=== PATIENT | female | born 1995 | race Caucasian/White ===

== ENCOUNTER 2018-12-31 17:38 | Emergency (ER) | payer OTHER ==
[2018-12-31 17:59] VITALS: TEMP 98.2
[2018-12-31] MEDS ORDERED: SODIUM CHLORIDE 0.9% 500 ML 500 ML IV STA (18:23)
[2018-12-31] MEDS ORDERED: SODIUM CHLORIDE 0.9% 1,000 ML IV STA (18:23)
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
[2018-12-31 19:10] LABS: Amphetamine Screen,Urine Not Detected (NotDetected); Benzodiazepines Screen,Urine Detected (NotDetected); Cocaine Screen,Urine Detected (NotDetected); Opiate Screen,Urine Not Detected (NotDetected); Phencyclidine Screen,Urine Not Detected (NotDetected); Urn Cannabinoid Scrn Detected (NotDetected)
[2018-12-31 19:11] LABS: Barbiturate Screen,Urine Not Detected (NotDetected); Methadone Screen, Urine Not Detected (NotDetected); Oxycodone Screen, Urine Not Detected (NotDetected); Tricyclic Antidepressant,Urine Not Detected (NotDetected)
--- NOTE | 2018-12-31 19:18 | CT ---
EXAMINATION TYPE: CT brain janine cha con DATE OF EXAM: 12/31/2018 COMPARISON: None HISTORY: Left eye ecchymosis. Possible head injury. Neck pain. Headache CT DLP: 1084.4 mGycm Automated exposure control for dose reduction was used. TECHNIQUE: CT scan of the head and cervical spine are performed without contrast. FINDINGS: Ventricles and sulci appear normal. There is no mass effect nor midline shift. There is n o sign of intracranial hemorrhage. The calvarium is intact. Cervical vertebra show some straightening that is probably positional. Posterior elements are intact. Disc spaces are normal. The skull base is intact. There is no evidence of a fracture. Facet joints a ppear normal. Prevertebral soft tissues appear normal. IMPRESSION: Normal CT scan of the brain. Normal CT scan cervical spine.
[2018-12-31 19:19] LABS: Basophils # (A) 0.1 k/uL (0-0.2); Basophils % (A) 1 %; Eosinophils # (A) 0.1 k/uL (0-0.7); Eosinophils % (A) 1 %; HCT 40.9 % (34.0-46.0); HGB 13.9 gm/dL (11.4-16.0); Lymphocytes # (A) 1.9 k/uL (1.0-4.8); Lymphocytes % (A) 23 %; MCH 31.1 pg (25.0-35.0); MCV 91.5 fL (80.0-100.0); Monocytes # (A) 0.6 k/uL (0-1.0); Monocytes % (A) 7 %; Neutrophils # (A) 5.5 k/uL (1.3-7.7); Neutrophils % (A) 66 %; Platelet Count 332 k/uL (150-450); RBC 4.47 m/uL (3.80-5.40); RDW 12.4 % (11.5-15.5); WBC 8.3 k/uL (3.8-10.6)
--- NOTE | 2018-12-31 19:20 | CT ---
EXAMINATION TYPE: CT facial bones wo con DATE OF EXAM: 12/31/2018 COMPARISON: None HISTORY: Left eye ecchymosis. Possible head injury. CT DLP: 1084.4 mGycm Automated exposure control for dose reduction was used. TECHNIQUE: CT scan of the sinuses is performed without contrast, axial images are obtained, coronal r eformatted images are also reviewed. FINDINGS: Orbital margins are intact. There is no evidence of a blowout fracture. There is no evidenc e of retro-orbital mass. There is normal aeration of the paranasal sinuses. Nasal bone appears intact . The maxilla is intact. Mandibular ring appears intact. The temporomandibular joints appear normal. The zygomatic arches appear normal. IMPRESSION: Normal CT scan of the facial bones. No fracture.
[2018-12-31 19:40] LABS: ALT 16 U/L (9-52); AST 28 U/L (14-36); Acetaminophen <10.0 ug/mL; African American GFR (CKD) >90 (>60 ml/min/1.73 sqM); Albumin 4.7 g/dL (3.5-5.0); Alcohol <10 mg/dL; Alkaline Phosphatase 73 U/L (38-126); Anion Gap 10 mmol/L; Blood Urea Nitrogen 13 mg/dL (7-17); Calcium 9.4 mg/dL (8.4-10.2); Carbon Dioxide 25 mmol/L (22-30); Chloride 106 mmol/L (98-107); Glucose 83 mg/dL (74-99); Potassium 4.1 mmol/L (3.5-5.1); Salicylate <1.0 mg/dL; Sodium 141 mmol/L (137-145); Total Protein 8.4 g/dL (6.3-8.2)
--- NOTE | 2018-12-31 20:16 | XR ---
EXAMINATION TYPE: XR chest 2V DATE OF EXAM: 12/31/2018 COMPARISON: NONE HISTORY: Weakness TECHNIQUE: Frontal and lateral views of the chest are obtained. FINDINGS: Heart and mediastinum are normal. Lungs are clear. Diaphragm is normal. Bony thorax appear s normal. IMPRESSION: Normal chest.
[2018-12-31 20:56] VITALS: BP 122/78; PULSE 62; RESP 18
== END 2018-12-31 21:03 | disposition home or self-care (01) ==
LOC: EC 17:38
DX: S06.0X9A Concussion with loss of consciousness of unspecified duration, initial encounter (principal); S05.11XA Contusion of eyeball and orbital tissues, right eye, initial encounter; F19.90 Other psychoactive substance use, unspecified, uncomplicated; R53.1 Weakness; R53.83 Other fatigue; S40.011A Contusion of right shoulder, initial encounter; S80.02XA Contusion of left knee, initial encounter; S40.022A Contusion of left upper arm, initial encounter; S40.021A Contusion of right upper arm, initial encounter; F17.200 Nicotine dependence, unspecified, uncomplicated; F32.9 Major depressive disorder, single episode, unspecified; Z79.899 Other long term (current) drug therapy
CPT/HCPCS: 99285; 36415; 93005; 80053; 85025; 81025; 80306; 83520; 71046; 72125; 70486; 70450; 96360; G0480 ×2; 80320; 80329

== ENCOUNTER 2019-10-04 03:30 | Emergency (ER) | payer OTHER ==
--- NOTE | 2019-10-04 03:43 | ED ---
Psych HPI - General Chief Complaint: Psychiatric Symptoms Stated Complaint: mental health Time Seen by Provider: 10/04/19 03:42 Source: patient, RN notes reviewed, old records reviewed Mode of arrival: ambulatory Limitations: no limitations - History of Present Illness Initial Comments: This is a 23-year-old female DF for evaluation patient to the ER for evaluation patient presents today for evaluation regards to pain intoxicated but severely depressed, patient with suicidal thoughts MD Complaint: suicidal ideation, feels depressed -: unknown Associated Psychiatric Symptoms: depression, suicidal ideation History of same: Yes Quality: constant, getting worse Improves With: medication Context: recent alcohol abuse Associated Symptoms: denies other symptoms Treatments Prior to Arrival: placed on mental health hold If Self Harm: admits thoughts of self harm - Related Data Home Medications Medication Instructions Recorded Confirmed LORazepam [Ativan] 1 mg PO DAILY PRN 12/31/18 12/31/18 buPROPion [Wellbutrin] 100 mg PO BID 12/31/18 12/31/18 Allergies Allergy/AdvReac Type Severity Reaction Status Date / Time No Known Allergies Allergy Verified 10/04/19 03:40 Review of Systems ROS Statement: Those systems with pertinent positive or pertinent negative responses have been documented in the HPI. ROS Other: All systems not noted in ROS Statement are negative. Past Medical History Additional Past Medical History / Comment(s): migraines, recurrent tonsillitis with cryptitis and tonsillar hypertrophy History of Any Multi-Drug Resistant Organisms: None Reported Past Surgical History: No Surgical Hx Reported Past Psychological History: Depression Smoking Status: Current every day smoker, Current some day smoker Past Alcohol Use History: None Reported, Daily Past Drug Use History: Marijuana - Past Family History Father Family Medical History: No Reported History Mother Family Medical History: No Reported History Brother(s) Family Medical History: No Reported History Sister(s) Family Medical History: No Reported History General Exam Limitations: no limitations General appearance: alert, in no apparent distress, anxious Head exam: Present: atraumatic, normocephalic, normal inspection Eye exam: Present: normal appearance, PERRL, EOMI. Absent: scleral icterus, conjunctival injection, periorbital swelling ENT exam: Present: normal exam, mucous membranes moist Neck exam: Present: normal inspection. Absent: tenderness, meningismus, lymp hadenopathy Respiratory exam: Present: normal lung sounds bilaterally. Absent: respiratory distress, wheezes, rales, rhonchi, stridor Cardiovascular Exam: Present: regular rate, normal rhythm, normal heart sounds. Absent: systolic murmur, diastolic murmur, rubs, gallop, clicks GI/Abdominal exam: Present: soft, normal bowel sounds. Absent: distended, tenderness, guarding, rebound, rigid Extremities exam: Present: normal inspection, full ROM, normal capillary refill. Absent: tenderness, pedal edema, joint swelling, calf tenderness Back exam: Present: normal inspection Neurological exam: Present: alert, oriented X3, CN II-XII intact Psychiatric exam: Present: normal affect, normal mood Skin exam: Present: warm, dry, intact, normal color. Absent: rash Course Vital Signs 10/04/19 03:36 Temperature 98.6 F Pulse Rate 108 H Respiratory 18 Rate Blood Pressure 117/61 O2 Sat by Pulse 98 Oximetry - Reevaluation(s) Reevaluation #1: 10/04/19 04:21 Medical records reviewed Reevaluation #2: 10/04/19 06:54 Patient was made medically clear for psychiatric evaluation Medical Decision Making - Medical Decision Making 23 female be transferred for inpatient psychiatric evaluation and treatment - Lab Data Lab Results 10/04/19 10/04/19 Range/Units 03:58 03:58 Urine Color Yellow Urine Appearance Cloudy H (Clear) Urine pH 5.5 (5.0-8.0) Ur Specific [place] 1.027 (1.001-1.035) Urine Protein Trace H (Negative) Urine Glucose (UA) Negative (Negative) Urine Ketones Trace H (Negative) Urine Blood Small H (Negative) Urine Nitrite Negative (Negative) Urine Bilirubin Negative (Negative) Urine Urobilinogen <2.0 (<2.0) mg/dL Ur Leukocyte Esterase Moderate H (Negative) Urine RBC 1 (0-5) /hpf Urine WBC 11 H (0-5) /hpf Ur Squamous Epith Cells 22 H (0-4) /hpf Urine Mucus Moderate H (None) /hpf Urine HCG, Qual Not Detected (Not Detectd) Urine Opiates Screen Not Detected (NotDetected) Ur Oxycodone Screen Not Detected (NotDetected) Urine Methadone Screen Not Detected (NotDetected) Ur Propoxyphene Screen Not Detected (NotDetected) Ur Barbiturates Screen Not Detected (NotDetected) U Tricyclic Antidepress Not Detected (NotDetected) Ur Phencyclidine Scrn Not Detected (NotDetected) Ur Amphetamines Screen Not Detected (NotDetected) U Methamphetamines Scrn Not Detected (NotDetected) U Benzodiazepines Scrn Not Detected (NotDetected) Urine Cocaine Screen Not Detected (NotDetected) U Marijuana (THC) Screen Detected H (NotDetected) Disposition Clinical Impression: Depression, Suicidal ideation Disposition: TRANSFER TO PSYCH HOSP/UNIT Condition: Fair Is patient prescribed a controlled substance at d/c from ED?: No Referrals: None,Stated [Primary Care Provider] - 1-2 days
[2019-10-04 04:29] LABS: Appearance,Urine Cloudy (Clear); Bilirubin,Urine Negative (Negative); Blood,Urine Small (Negative); Color,Urine Yellow; Glucose,Urine (UA) Negative (Negative); Ketones,Urine Trace (Negative); Leukocyte Esterase,Urine Moderate (Negative); Mucus,Urine Moderate /hpf; Nitrite,Urine Negative (Negative); PH, Urine 5.5 (5.0-8.0); Protein,Urine Trace (Negative); RBC,Urine 1 /hpf (0-5); Specific Gravity,Urine 1.027 (1.001-1.035); Squamous Epithelial Cell,Urine 22 /hpf (0-4); Urobilinogen,Urine <2.0 mg/dL (<2.0); WBC,Urine 11 /hpf (0-5)
[2019-10-04 04:39] LABS: Amphetamine Screen,Urine Not Detected (NotDetected); Barbiturate Screen,Urine Not Detected (NotDetected); Benzodiazepines Screen,Urine Not Detected (NotDetected); Cocaine Screen,Urine Not Detected (NotDetected); Methadone Screen, Urine Not Detected (NotDetected); Opiate Screen,Urine Not Detected (NotDetected); Oxycodone Screen, Urine Not Detected (NotDetected); Phencyclidine Screen,Urine Not Detected (NotDetected); Tricyclic Antidepressant,Urine Not Detected (NotDetected); Urn Cannabinoid Scrn Detected (NotDetected)
[2019-10-04 08:31] LABS: Basophils % (A) 0 %; Eosinophils # (A) 0.2 k/uL (0-0.7); Eosinophils % (A) 2 %; HCT 42.4 % (34.0-46.0); HGB 13.9 gm/dL (11.4-16.0); Lymphocytes # (A) 2.5 k/uL (1.0-4.8); Lymphocytes % (A) 27 %; MCH 31.2 pg (25.0-35.0); MCHC 32.9 g/dL (31.0-37.0); MCV 94.9 fL (80.0-100.0); Mean Platelet Volume 7.1; Monocytes # (A) 0.5 k/uL (0-1.0); Monocytes % (A) 6 %; Neutrophils # (A) 5.5 k/uL (1.3-7.7); Neutrophils % (A) 62 %; Platelet Count 344 k/uL (150-450); RBC 4.47 m/uL (3.80-5.40); RDW 12.2 % (11.5-15.5)
[2019-10-04 08:45] LABS: ALT 10 U/L (4-34); AST 21 U/L (14-36); African American GFR (CKD) >90 (>60 ml/min/1.73 sqM); Albumin 4.6 g/dL (3.5-5.0); Alkaline Phosphatase 82 U/L (38-126); Anion Gap 9 mmol/L; Blood Urea Nitrogen 12 mg/dL (7-17); Calcium 9.3 mg/dL (8.4-10.2); Carbon Dioxide 24 mmol/L (22-30); Chloride 109 mmol/L (98-107); Glucose 85 mg/dL (74-99); Non-African American GFR(CKD) >90 (>60 ml/min/1.73 sqM); Potassium 4.5 mmol/L (3.5-5.1); Sodium 142 mmol/L (137-145); Total Bilirubin 0.5 mg/dL (0.2-1.3); Total Protein 8.1 g/dL (6.3-8.2)
[2019-10-04 11:28] VITALS: RESP 16
[2019-10-04 11:37] VITALS: TEMP 98.2
[2019-10-04 14:12] VITALS: BP 120/77; PULSE 79
== END 2019-10-04 14:45 ==
LOC: EC 03:30
DX: F32.9 Major depressive disorder, single episode, unspecified (principal); R45.851 Suicidal ideations; R52 Pain, unspecified; F17.200 Nicotine dependence, unspecified, uncomplicated; Z79.899 Other long term (current) drug therapy
CPT/HCPCS: 36415; 80053; 80306; 81001; 81025; 82075; 85025; 87086; 99285

== ENCOUNTER → 2021-09-23 | Outpatient (CLI) | payer OTHER ==
[~2021-09-23] MED LIST: METHOTREXATE SODIUM (PF) 25 MG/ML 2 ML VIAL IM ONE
[2021-09-23 14:20] VITALS: BP 114/74; PULSE 68; RESP 16; TEMP 98.4
== END ==
LOC: PROCWHC3 09:38
PROVIDERS: ATTEND Obstetrics & Gynecology
DX: O00.90 Unspecified ectopic pregnancy without intrauterine pregnancy (principal); Z3A.00 Weeks of gestation of pregnancy not specified
CPT/HCPCS: 86900; 86901; 84450; 84460; 84702; 96402; J9260; 86850

== ENCOUNTER 2021-09-25 21:30 | Emergency (ER) | payer OTHER ==
[2021-09-25 21:44] VITALS: BP 140/99; PULSE 90; RESP 20; TEMP 98.2
[2021-09-25 22:32] LABS: Appearance,Urine Clear (Clear); Bacteria,Urine Rare /hpf; Bilirubin,Urine Negative (Negative); Blood,Urine Large (Negative); Color,Urine Yellow; Glucose,Urine (UA) Negative (Negative); Ketones,Urine Negative (Negative); Leukocyte Esterase,Urine Negative (Negative); Mucus,Urine Rare /hpf; Nitrite,Urine Negative (Negative); PH, Urine 5.5 (5.0-8.0); Protein,Urine Negative (Negative); RBC,Urine 31 /hpf (0-5); Urobilinogen,Urine <2.0 mg/dL (<2.0); WBC,Urine 1 /hpf (0-5)
--- NOTE | 2021-09-25 22:57 | ED ---
Abdominal Pain HPI - General Chief Complaint: Abdominal Pain Stated Complaint: Abd pain Time Seen by Provider: 09/25/21 21:52 Source: patient, family, RN notes reviewed Mode of arrival: ambulatory Limitations: no limitations - History of Present Illness Initial Comments: Patient is a pleasant 25-year-old female presents to the emergency room with complaints of severe abdominal pain. She was found to have an ectopic recently and was started on methotrexate 2 days ago. She reports that while giving a urine sample in the triage reason she noticed that she passed a large blood clot and after passing the blood clot her abdominal pain has seemed to lessen to a as expected menstrual cycle-like cramping sensation. She denies any severe sharp abdominal pain at this time, nausea, vomiting, headaches, dizziness fevers or chills. She had serum beta levels drawn on 09/23/2021 with values of [id number]. She has a past medical history significant for migraines but denies any other significant past medical history. She denies any other compla ints or concerns at this time. - Related Data Home Medications Medication Instructions Recorded Confirmed No Known Home Medications 10/04/19 10/04/19 Allergies Allergy/AdvReac Type Severity Reaction Status Date / Time No Known Allergies Allergy Verified 09/25/21 21:43 Review of Systems ROS Statement: Those systems with pertinent positive or pertinent negative responses have been documented in the HPI. ROS Other: All systems not noted in ROS Statement are negative. Past Medical History Additional Past Medical History / Comment(s): migraines, recurrent tonsillitis with cryptitis and tonsillar hypertrophy History of Any Multi-Drug Resistant Organisms: None Reported Past Surgical History: No Surgical Hx Reported Past Anesthesia/Blood Transfusion Reactions: No Reported Reaction Past Psychological History: No Psychological Hx Reported, Depression Smoking Status: Vaper Past Alcohol Use History: None Reported, Daily Past Drug Use History: None Reported, Marijuana - Past Family History Father Family Medical History: No Reported History Mother Family Medical History: No Reported History Brother(s) Family Medical History: No Reported History Sister(s) Family Medical History: No Reported History General Exam Limitations: no limitations General appearance: alert, in no apparent distress Head exam: Present: atraumatic, normocephalic, normal inspection Eye exam: Present: normal appearance, PERRL, EOMI. Absent: scleral icterus, conjunctival injection, periorbital swelling ENT exam: Present: normal exam, mucous membranes moist Neck exam: Present: normal inspection Respiratory exam: Present: normal lung sounds bilaterally. Absent: respiratory distress, wheezes, rales, rhonchi, stridor Cardiovascular Exam: Present: regular rate, normal rhythm, normal heart sounds. Absent: systolic murmur, diastolic murmur, rubs, gallop, clicks GI/Abdominal exam: Present: soft, normal bowel sounds. Absent: distended, tenderness, guarding, rebound, rigid Extremities exam: Present: normal inspection, full ROM, normal capillary refill. Absent: tenderness, pedal edema, joint swelling, calf tenderness Back exam: Present: normal inspection Neurological exam: Present: alert, oriented X3, CN II-XII intact Psychiatric exam: Present: normal affect, normal mood Skin exam: Present: warm, dry, intact, normal color. Absent: rash Course Vital Signs 09/25/21 21:40 Temperature 98.2 F Pulse Rate 90 Respiratory 20 Rate Blood Pressure 140/99 O2 Sat by Pulse 99 Oximetry Medical Decision Making - Medical Decision Making Known ectopic high risk for tubal rupture. Will check CBC, quantitative beta serum levels along with OB ultrasound. She currently reports that pain is stable and denies any analgesic needs. Slight leukocytosis without evidence of antibiotic need. Hemoglobin stable. Ultrasound revealed presence of ectopic without rupture. Will discharge home with close follow-up with her EVP. - Lab Data Result diagrams: 09/25/21 23:11 Lab Results 09/25/21 09/25/21 09/25/21 Range/Units 21:57 23:11 23:11 WBC 10.7 H (3.8-10.6) k/uL RBC 4.32 (3.80-5.40) m/uL Hgb 12.5 (11.4-16.0) gm/dL Hct 40.5 (34.0-46.0) % MCV 93.5 (80.0-100.0) fL MCH 28.9 (25.0-35.0) pg MCHC 30.9 L (31.0-37.0) g/dL RDW 12.5 (11.5-15.5) % Plt Count 400 (150-450) k/uL MPV 7.4 Neutrophils % 74 % Lymphocytes % 18 % Monocytes % 4 % Eosinophils % 2 % Basophils % 0 % Neutrophils # 7.9 H (1.3-7.7) k/uL Lymphocytes # 2.0 (1.0-4.8) k/uL Monocytes # 0.4 (0-1.0) k/uL Eosinophils # 0.2 (0-0.7) k/uL Basophils # 0.0 (0-0.2) k/uL HCG, Quant 3995.8 mIU/mL Urine Color Yellow Urine Appearance Clear (Clear) Urine pH 5.5 (5.0-8.0) Ur Specific [place] 1.010 (1.001-1.035) Urine Protein Negative (Negative) Urine Glucose (UA) Negative (Negative) Urine Ketones Negative (Negative) Urine Blood Large H (Negative) Urine Nitrite Negative (Negative) Urine Bilirubin Negative (Negative) Urine Urobilinogen <2.0 (<2.0) mg/dL Ur Leukocyte Esterase Negative (Negative) Urine RBC 31 H (0-5) /hpf Urine WBC 1 (0-5) /hpf Urine Bacteria Rare H (None) /hpf Urine Mucus Rare H (None) /hpf Disposition Clinical Impression: Ectopic Disposition: HOME SELF-CARE Condition: Stable Instructions (If sedation given, give patient instructions): Ectopic (DC) Additional Instructions: Please continue follow-up with your work EVP in regards to treatment for your topic . Drink plenty of fluids. Utilize Tylenol as needed for pain. Pl ease return to the Emergency Department if symptoms worsen or any other concerns. Is patient prescribed a controlled substance at d/c from ED?: No Referrals: Karis Franco PAC [Primary Care Provider] - 1-2 days
[2021-09-25 23:40] LABS: Basophils % (A) 0 %; Eosinophils # (A) 0.2 k/uL (0-0.7); Eosinophils % (A) 2 %; HCT 40.5 % (34.0-46.0); HGB 12.5 gm/dL (11.4-16.0); Lymphocytes % (A) 18 %; MCH 28.9 pg (25.0-35.0); MCHC 30.9 g/dL (31.0-37.0); MCV 93.5 fL (80.0-100.0); Mean Platelet Volume 7.4; Monocytes # (A) 0.4 k/uL (0-1.0); Monocytes % (A) 4 %; Neutrophils # (A) 7.9 k/uL (1.3-7.7); Neutrophils % (A) 74 %; Platelet Count 400 k/uL (150-450); RBC 4.32 m/uL (3.80-5.40); RDW 12.5 % (11.5-15.5); WBC 10.7 k/uL (3.8-10.6)
--- NOTE | 2021-09-26 00:58 | US ---
EXAMINATION TYPE: Transabdominal DATE OF EXAM: 09/25/2021 10:18 PM COMPARISON: NONE CLINICAL HISTORY: pain ectopic . known rt tubal ectopic, started methotrexate 2 days ago, pe lvic pain today EXAM PERFORMED: OBTA EXAM MEASUREMENTS: GESTATIONAL AGE / DATING Physician Established: N/A Dates by LMP: (9 weeks/6 days) EDC: 04/24/2022 Dates by First Scan: No previous this is first scan Dates by Current Scan for: No IUP seen at this time MATERNAL ANATOMY Uterus: 7.7 x 4.6 x 3.6cm Right Ovary: 3.4 x 2.0 x 2.4cm Left Ovary: 2.0 x 1.5 x 1.8cm Post CDS / Adnexa: heterogeneous right fallopian tube with known ectopic had increased vascularity Presence of free fluid: NO Presence of corpus luteal cyst: not seen Presence of subchorionic bleed: n Date of LMP: 07/18/2021 Beta HcG (if available): not drawn patient states she voided prior to US and passed large clots and pain instantly stopped. IMPRESSION: There is enlarged right fallopian tube with increased vascularity consistent with known ectopic tubal . This area measures 1.7 cm in diameter. No previous exam available for comparison. The uterus appears empty with endometrium measuring 10 mm. Uterus measures 7.7 x 3.6 cm. Cul-de-sac i s clear fluid.
[2021-09-26] MEDS ORDERED: ACET/COD 300 MG/30 MG STARTER PACK 6 TAB BTL PO STA (01:17)
== END 2021-09-26 02:22 | disposition home or self-care (01) ==
LOC: EC 21:30
DX: O00.90 Unspecified ectopic pregnancy without intrauterine pregnancy (principal); O99.511 Diseases of the respiratory system complicating pregnancy, first trimester; F17.290 Nicotine dependence, other tobacco product, uncomplicated; Z3A.09 9 weeks gestation of pregnancy
CPT/HCPCS: 36415; 76801; 81001; 84702; 85025; 99284

== ENCOUNTER 2021-10-01 16:00 | Observation (INO) | payer OTHER ==
[2021-10-01] MEDS ORDERED: SODIUM CHLORIDE 0.9% 1,000 ML IV STA (17:31)
[2021-10-01] MEDS ORDERED: SODIUM CHLORIDE 0.9% 2,000 ML IV STA (17:39)
[2021-10-01] MEDS ORDERED: HYDROmorphone 0.5 MG/0.5 ML SYRINGE IVP STA (17:39)
[2021-10-01 18:19] LABS: Basophils % (A) 1 %; Eosinophils # (A) 0.2 k/uL (0-0.7); Eosinophils % (A) 3 %; HCT 39.6 % (34.0-46.0); HGB 12.6 gm/dL (11.4-16.0); Lymphocytes # (A) 2.3 k/uL (1.0-4.8); Lymphocytes % (A) 27 %; MCHC 31.9 g/dL (31.0-37.0); MCV 94.2 fL (80.0-100.0); Mean Platelet Volume 7.5; Monocytes # (A) 0.5 k/uL (0-1.0); Monocytes % (A) 5 %; Neutrophils # (A) 5.3 k/uL (1.3-7.7); Neutrophils % (A) 63 %; Platelet Count 399 k/uL (150-450); RBC 4.21 m/uL (3.80-5.40); RDW 12.8 % (11.5-15.5); WBC 8.4 k/uL (3.8-10.6)
[2021-10-01 18:25] LABS: ALT 16 U/L (4-34); AST 21 U/L (14-36); African American GFR (CKD) >90 (>60 ml/min/1.73 sqM); Albumin 4.7 g/dL (3.5-5.0); Alkaline Phosphatase 86 U/L (38-126); Anion Gap 10 mmol/L; Blood Urea Nitrogen 11 mg/dL (7-17); Calcium 9.5 mg/dL (8.4-10.2); Carbon Dioxide 22 mmol/L (22-30); Chloride 106 mmol/L (98-107); Glucose 84 mg/dL (74-99); Lipase 81 U/L (23-300); Non-African American GFR(CKD) >90 (>60 ml/min/1.73 sqM); Potassium 4.2 mmol/L (3.5-5.1); Sodium 138 mmol/L (137-145); Total Bilirubin 0.4 mg/dL (0.2-1.3); Total Protein 8.3 g/dL (6.3-8.2)
[2021-10-01] MEDS ORDERED: Rhogam IMMUNE GLOBULIN 1,500 UNIT/1 ML IM ONE (18:33)
[2021-10-01 18:41] LABS: HCG,Quantitative Serum 1379.5 mIU/mL
[2021-10-01 18:44] LABS: INR 1.1 (<1.2); Partial Thromboplastin Time 25.9 sec (22.0-30.0); Prothrombin Time 11.5 sec (9.0-12.0)
[2021-10-01] MEDS ORDERED: MORPHINE SULFATE 4 MG/ML SYRINGE IV PRN (18:46)
[2021-10-01] MEDS ORDERED: NALOXONE 0.4 MG/ML 1 ML VIAL IV PRN (18:46)
[2021-10-01 18:57] LABS: Appearance,Urine Cloudy (Clear); Bacteria,Urine Rare /hpf; Bilirubin,Urine Negative (Negative); Blood,Urine Large (Negative); Color,Urine Light Yellow; Glucose,Urine (UA) Negative (Negative); Ketones,Urine Negative (Negative); Leukocyte Esterase,Urine Small (Negative); Mucus,Urine Rare /hpf; Nitrite,Urine Negative (Negative); Protein,Urine Negative (Negative); RBC,Urine 1 /hpf (0-5); Specific Gravity,Urine 1.008 (1.001-1.035); Squamous Epithelial Cell,Urine 4 /hpf (0-4); Urobilinogen,Urine <2.0 mg/dL (<2.0); WBC,Urine 4 /hpf (0-5)
[2021-10-01] MEDS ORDERED: SODIUM CHLORIDE 0.9% 1,000 ML IV SCH (19:00)
--- NOTE | 2021-10-01 19:07 | ED ---
Abdominal Pain HPI - General Chief Complaint: Abdominal Pain Stated Complaint: etopic Time Seen by Provider: 10/01/21 17:24 Source: patient Mode of arrival: ambulatory Limitations: no limitations - History of Present Illness Initial Comments: Patient is a 25-year-old A0 female who was recently diagnosed with ectopic presents with a chief complaint of abdominal pain. This is patient's first and she was diagnosed by her OB Dr. Moreno at around 9 weeks. Patient states she received methotrexate on 09/22. Patient presented in our emergency department due to increased pain on 09/25. At this time ultrasound showed a right fallopian tube ectopic without the presence of free fluid. Hemoglobin was stable. Patient was discharged with Tylenol 3. She states he Tylenol 3's are not helping her pain at home. Patient endorses pain in the right pelvic region, 8/10 in severity. There is radiation to the lef t pelvic region. Reports nausea without vomiting. She denies fever, chills, shortness of breath, dizziness, lightheadedness, chest pain, and other concerns. Reports vaginal bleeding, using approximately 2 pads a day States she received rhogam last week. - Related Data Home Medications Medication Instructions Recorded Confirmed No Known Home Medications 10/04/19 10/04/19 Allergies Allergy/AdvReac Type Severity Reaction Status Date / Time No Known Allergies Allergy Verified 10/01/21 16:06 Review of Systems ROS Statement: Those systems with pertinent positive or pertinent negative responses have been documented in the HPI. ROS Other: All systems not noted in ROS Statement are negative. Past Medical History Additional Past Medical History / Comment(s): migraines, recurrent tonsillitis with cryptitis and tonsillar hypertrophy History of Any Multi-Drug Resistant Organisms: None Reported Past Surgical History: No Surgical Hx Reported Past Anesthesia/Blood Transfusion Reactions: No Reported Reaction Past Psychological History: No Psychological Hx Reported, Depression Smoking Status: Vaper Past Alcohol Use History: None Reported, Daily Past Drug Use History: None Reported, Marijuana - Past Family History Father Family Medical History: No Reported History Mother Family Medical History: No Reported History Brother(s) Family Medical History: No Reported History Sister(s) Family Medical History: No Reported History General Exam Limitations: no limitations General appearance: alert, in no apparent distress Head exam: Present: atraumatic, normocephalic, normal inspection Eye exam: Present: normal appearance, PERRL, EOMI. Absent: scleral icterus, conjunctival injection, periorbital swelling Respiratory exam: Present: normal lung sounds bilaterally. Absent: respiratory distress, wheezes, rales, rhonchi, stridor Cardiovascular Exam: Present: regular rate, normal rhythm, normal heart sounds. Absent: systolic murmur, diastolic murmur, rubs, gallop, clicks GI/Abdominal exam: Present: soft, tenderness (right pelvic and to a lesser extent, left pelvic), normal bowel sounds. Absent: distended, guarding, rebound, rigid Neurological exam: Present: alert, oriented X3, CN II-XII intact Psychiatric exam: Present: normal affect, normal mood Skin exam: Present: warm, dry, intact, normal color. Absent: rash Course Vital Signs 10/01/21 10/01/21 16:02 18:34 Temperature 98.1 F Pulse Rate 72 74 Respiratory 20 16 Rate Blood Pressure 110/67 110/76 O2 Sat by Pulse 97 99 Oximetry Medical Decision Making - Medical Decision Making This is a 25-year-old female recently diagnosed with ectopic presenting with right pelvic pain. Thorough history and examination were performed. Patient is well-appearing. She is hemodynamically stable. Afebrile. There is moderate tenderness with palpation of the right pelvic region and to a lesser extent the left pelvic region. Pain and nausea controlled with Dilaudid and Zofran. Patient has normal hemoglobin at 12.6. Transabdominal ultrasound shows no IUP and heterogeneous right fallopian tube with portion of the tube but now appears fluid filled. There is presence of free fluid. Case discussed with OB Dr. Sandhu, covering for Dr. Moreno. He recommends patient be admitted for observation. Results discussed with patient who is agreeable to admission. She is NPO. Admitted in stable condition. Dr. James is my attending. - Lab Data Result diagrams: 10/01/21 18:07 10/01/21 18:07 Lab Results 10/01/21 10/01/21 10/01/21 Range/Units 18:07 18:07 18:07 WBC 8.4 (3.8-10.6) k/uL RBC 4.21 (3.80-5.40) m/uL Hgb 12.6 (11.4-16.0) gm/dL Hct 39.6 (34.0-46.0) % MCV 94.2 (80.0-100.0) fL MCH 30.0 (25.0-35.0) pg MCHC 31.9 (31.0-37.0) g/dL RDW 12.8 (11.5-15.5) % Plt Count 399 (150-450) k/uL MPV 7.5 Neutrophils % 63 % Lymphocytes % 27 % Monocytes % 5 % Eosinophils % 3 % Basophils % 1 % Neutrophils # 5.3 (1.3-7.7) k/uL Lymphocytes # 2.3 (1.0-4.8) k/uL Monocytes # 0.5 (0-1.0) k/uL Eosinophils # 0.2 (0-0.7) k/uL Basophils # 0.0 (0-0.2) k/uL PT 11.5 (9.0-12.0) sec INR 1.1 (<1.2) APTT 25.9 (22.0-30.0) sec Sodium 138 (137-145) mmol/L Potassium 4.2 (3.5-5.1) mmol/L Chloride 106 (98-107) mmol/L Carbon Dioxide 22 (22-30) mmol/L Anion Gap 10 mmol/L BUN 11 (7-17) mg/dL Creatinine 0.59 (0.52-1.04) mg/dL Est GFR (CKD-EPI)AfAm >90 (>60 ml/min/1.73 sqM) Est GFR (CKD-EPI)NonAf >90 (>60 ml/min/1.73 sqM) Glucose 84 (74-99) mg/dL Calcium 9.5 (8.4-10.2) mg/dL Total Bilirubin 0.4 (0.2-1.3) mg/dL AST 21 (14-36) U/L ALT 16 (4-34) U/L Alkaline Phosphatase 86 (38-126) U/L Total Protein 8.3 H (6.3-8.2) g/dL Albumin 4.7 (3.5-5.0) g/dL Lipase 81 (23-300) U/L HCG, Quant 1379.5 mIU/mL Urine Color Urine Appearance (Clear) Urine pH (5.0-8.0) Ur Specific [place] (1.001-1.035) Urine Protein (Negative) Urine Glucose (UA) (Negative) Urine Ketones (Negative) Urine Blood (Negative) Urine Nitrite (Negative) Urine Bilirubin (Negative) Urine Urobilinogen (<2.0) mg/dL Ur Leukocyte Esterase (Negative) Urine RBC (0-5) /hpf Urine WBC (0-5) /hpf Ur Squamous Epith Cells (0-4) /hpf Urine Bacteria (None) /hpf Urine Mucus (None) /hpf 10/01/21 Range/Units 18:35 WBC (3.8-10.6) k/uL RBC (3.80-5.40) m/uL Hgb (11.4-16.0) gm/dL Hct (34.0-46.0) % MCV (80.0-100.0) fL MCH (25.0-35.0) pg MCHC (31.0-37.0) g/dL RDW (11.5-15.5) % Plt Count (150-450) k/uL MPV Neutrophils % % Lymphocytes % % Monocytes % % Eosinophils % % Basophils % % Neutrophils # (1.3-7.7) k/uL Lymphocytes # (1.0-4.8) k/uL Monocytes # (0-1.0) k/uL Eosinophils # (0-0.7) k/uL Basophils # (0-0.2) k/uL PT (9.0-12.0) sec INR (<1.2) APTT (22.0-30.0) sec Sodium (137-145) mmol/L Potassium (3.5-5.1) mmol/L Chloride (98-107) mmol/L Carbon Dioxide (22-30) mmol/L Anion Gap mmol/L BUN (7-17) mg/dL Creatinine (0.52-1.04) mg/dL Est GFR (CKD-EPI)AfAm (>60 ml/min/1.73 sqM) Est GFR (CKD-EPI)NonAf (>60 ml/min/1.73 sqM) Glucose (74-99) mg/dL Calcium (8.4-10.2) mg/dL Total Bilirubin (0.2-1.3) mg/dL AST (14-36) U/L ALT (4-34) U/L Alkaline Phosphatase (38-126) U/L Total Protein (6.3-8.2) g/dL Albumin (3.5-5.0) g/dL Lipase (23-300) U/L HCG, Quant mIU/mL Urine Color Light Yellow Urine Appearance Cloudy H (Clear) Urine pH 7.0 (5.0-8.0) Ur Specific [place] 1.008 (1.001-1.035) Urine Protein Negative (Negative) Urine Glucose (UA) Negative (Negative) Urine Ketones Negative (Negative) Urine Blood Large H (Negative) Urine Nitrite Negative (Negative) Urine Bilirubin Negative (Negative) Urine Urobilinogen <2.0 (<2.0) mg/dL Ur Leukocyte Esterase Small H (Negative) Urine RBC 1 (0-5) /hpf Urine WBC 4 (0-5) /hpf Ur Squamous Epith Cells 4 (0-4) /hpf Urine Bacteria Rare H (None) /hpf Urine Mucus Rare H (None) /hpf Disposition Clinical Impression: Ectopic , Abdominal pain Disposition: ADMITTED IP TO THIS [facility] Condition: Fair Time of Disposition: 20:14
[2021-10-01] MEDS: ONDANSETRON 4 MG/2 ML VIAL IVP PRN (19:13)
--- NOTE | 2021-10-01 19:16 | US ---
EXAMINATION TYPE: Transabdominal DATE OF EXAM: 10/01/2021 6:32 PM COMPARISON: 09/25/2021 CLINICAL HISTORY: right fallopian tube ectopic, increased pain. Known right fallopian tube ectopic, s tarted methotrexate 1 week ago, patient states she is having increased right pelvic pain EXAM PERFORMED: Transabdominal (TA) EXAM MEASUREMENTS: GESTATIONAL AGE / DATING Physician Established: Not yet established Dates by LMP: (10 weeks/5 days) EDC: 04/24/2022 Dates by First Scan: No IUP seen Dates by Current Scan for: No IUP seen MATERNAL ANATOMY Uterus: 7.1 x 3.2 x 5.0cm, endometrium 0.6cm Right Ovary: 3.1 x 1.7 x 2.7cm Left Ovary: 2.5 x 1.3 x 1.5cm Post CDS / Adnexa: heterogeneous right fallopian tube with known ectopic, portion of tube now appears fluid filled Presence of free fluid: yes Presence of corpus luteal cyst: not seen Presence of subchorionic bleed: no GESTATION / SURVEY IUP: No IUP seen at this time Date of LMP: 07/18/2021 Beta HcG (if available): 1,379.5 IMPRESSION: There is right-sided hydrosalpinx with more well-defined fluid compared to previous exam. Empty uteru s. Normal ovaries. There is tiny amount of free fluid in the cul-de-sac which appears new compared to old exam. No gestational sac seen.
--- NOTE | 2021-10-01 20:57 | P.HPOB ---
History of Present Illness H&P Date: 10/01/21 Chief Complaint: Pelvic/abdominal pain and known ectopic This patient is a pleasant 25-year-old 1 para 0 female who was seen on September [address] Moreno in the office and diagnosed with a 7 week right ectopic . She was quite large. Patient was not having any significant pain and therefore was offered trial of methotrexate versus surgical intervention. Patient chose methotrexate at this time because she apparently has been trying for a period of time to get . Patient's beta-hCG at that time was 5887. She subsequently about 3 days later went to the emergency department with again severe lower abdominal pain and at that time had a beta hCG of 3995. She had passed a clot and felt that the pain had improved and therefore was sent home on oral pain medications. Patient's hemoglobin on September 25 was 12.5. Patient called the office earlier this afternoon stating that her pain was continuing and getting worse and therefore re-presented to the emergency department. Patient's repeat beta hCG has decreased to 1379 and ultrasound basically is similar to previous findings. There is a trace amount of free fluid and hemoglobin stable at 12.6. Patient has been taking Tylenol 3 apparently this week for pain. The emergency department did call me and I discussed the case with them I felt since this was her second visit to the emergency department as best to admit for observation and possible surgical intervention tomorrow. Review of Systems Genitourinary: Reports as per HPI Menstruation: Reports as per HPI Past Medical History Additional Past Medical History / Comment(s): migraines, recurrent tonsillitis with cryptitis and tonsillar hypertrophy History of Any Multi-Drug Resistant Organisms: None Reported Past Surgical History: No Surgical Hx Reported Past Anesthesia/Blood Transfusion Reactions: No Reported Reaction Past Psychological History: No Psychological Hx Reported, Depression Smoking Status: Vaper Past Alcohol Use History: None Reported, Daily Past Drug Use History: None Reported, Marijuana - Past Family History Father Family Medical History: No Reported History Mother Family Medical History: No Reported History Brother(s) Family Medical History: No Reported History Sister(s) Family Medical History: No Reported History Medications and Allergies Home Medications Medication Instructions Recorded Confirmed Type No Known Home Medications 10/04/19 10/04/19 History Allergies Allergy/AdvReac Type Severity Reaction Status Date / Time No Known Allergies Allergy Verified 10/01/21 16:06 Exam Vital Signs Temp Pulse Pulse Resp BP BP Pulse Ox 10/01/21 20:33 98.3 F 64 16 104/71 100 10/01/21 18:34 74 16 110/76 99 10/01/21 16:02 98.1 F 72 20 110/67 97 Intake and Output 10/01/21 10/01/21 10/01/21 06:59 14:59 22:59 Other: Weight 65.317 kg - OBG Physical Exam Abdomen: bowel sounds normal (Patient has some tenderness in the right lower quadrant to palpation. There is no rebound at this time.), no diffuse tenderness, no bruit present, no guarding noted, no hepatomegaly, no splenomegaly, no mass Results Result Diagrams: 10/01/21 18:07 10/01/21 18:07 Abnormal Lab Results - Last 24 Hours (Table) 10/01/21 10/01/21 Range/Units 18:07 18:35 Total Protein 8.3 H (6.3-8.2) g/dL Urine Appearance Cloudy H (Clear) Urine Blood Large H (Negative) Ur Leukocyte Esterase Small H (Negative) Urine Bacteria Rare H (None) /hpf Urine Mucus Rare H (None) /hpf Assessment and Plan Assessment: This is a pleasant 25-year-old 1 para 0 female with known 7 week size right ectopic with persistent pain. Patient is stable at this time however since this is her second admission to the emergency department in the last 7 days I recommended admission for observation, serial blood counts, and possible surgical intervention. Although the patient's beta hCG has fallen her pain does appear to be getting worse. Plan is admission for IV fluids, pain management, and Dr. Moreno we'll see this patient morning to discuss the next step in management. Patient did have RhoGAM already in our office and therefore is not indicated. (1) Rh negative status during Current Visit: Yes Status: Acute Code(s): O26.899 - OTH RELATED CONDITIONS, UNSPECIFIED TRIMESTER; Z67.91 - UNSPECIFIED BLOOD TYPE, RH NEGATIVE SNOMED Code(s): 985210255 (2) Abdominal pain Current Visit: Yes Status: Acute Code(s): R10.9 - UNSPECIFIED ABDOMINAL PAIN SNOMED Code(s): 59130942 (3) Ectopic Current Visit: Yes Status: Acute Code(s): O00.90 - UNSPECIFIED ECTOPIC WITHOUT INTRAUTERINE SNOMED Code(s): 27901441
[2021-10-01] MEDS: HYDROmorphone 0.5 MG/0.5 ML SYRINGE IVP PRN (22:14)
[2021-10-01] MEDS: LACTATED RINGERS 1,000 ML IV SCH (22:16)
[2021-10-02] MEDS: LACTATED RINGERS 1,000 ML IV SCH ×2 (06:24→13:58)
--- NOTE | 2021-10-02 07:15 | P.PN ---
Progress Note - Text Progress Note Date: 10/02/21 Patient continues to have pain with this ectopic . She is nervous to go home and have it rupture. I think it's reasonable to take her to the operating room and this point for laparoscopic salpingectomy removal of ectopic possible oophorectomy and possible laparotomy. I expressed all the risks and benefits and alternatives with the patient and her boyfriend. Patient expressed complete understanding and would like to go ahead with the surgery.
[2021-10-02] MEDS: HYDROmorphone 0.5 MG/0.5 ML SYRINGE IVP PRN ×2 (07:26→11:09)
[2021-10-02 08:12] LABS: Basophils % (A) 0 %; Eosinophils # (A) 0.2 k/uL (0-0.7); Eosinophils % (A) 3 %; HCT 37.7 % (34.0-46.0); HGB 12.2 gm/dL (11.4-16.0); Lymphocytes # (A) 2.3 k/uL (1.0-4.8); Lymphocytes % (A) 38 %; MCH 31.3 pg (25.0-35.0); MCHC 32.4 g/dL (31.0-37.0); MCV 96.7 fL (80.0-100.0); Mean Platelet Volume 7.5; Monocytes # (A) 0.4 k/uL (0-1.0); Monocytes % (A) 6 %; Neutrophils % (A) 50 %; Platelet Count 357 k/uL (150-450); RDW 13.1 % (11.5-15.5)
[2021-10-02] MEDS: ONDANSETRON 4 MG/2 ML VIAL IVP PRN (08:34)
[2021-10-02] MEDS ORDERED: IV FLUID CONTINUATION 1,000 ML IV ONE (11:55)
[2021-10-02] MEDS ORDERED: LIDOCAINE 2% INJ 20 MG/ML (2 ML VIAL) ONE (12:02)
[2021-10-02] MEDS ORDERED: SUCCINYLCHOLINE CHLORIDE 100 MG/5 ML SYR IV ONE (12:02)
[2021-10-02] MEDS ORDERED: fentaNYL (PF) 50 MCG/ML 2 ML AMP ONE (12:02)
[2021-10-02] MEDS ORDERED: GLYCOPYRROLATE 0.2 MG/ML 2 ML VIAL ONE (12:02)
[2021-10-02] MEDS ORDERED: NEOSTIGMINE 1 MG/ML 10 ML VIAL ONE (12:02)
[2021-10-02] MEDS ORDERED: HYDROmorphone (PF) 1 MG/ML ONE (12:02)
[2021-10-02] MEDS ORDERED: KETOROLAC 15 MG/ML 1 ML VIAL ONE (12:02)
[2021-10-02] MEDS ORDERED: MIDAZOLAM 2 MG/2 ML VIAL ONE (12:02)
[2021-10-02] MEDS ORDERED: PROPOFOL 10 MG/ML 20 ML VIAL IV ONE (12:02)
[2021-10-02] MEDS ORDERED: ROCURONIUM 10 MG/ML (5 ML VIAL) IV ONE (12:02)
[2021-10-02] MEDS ORDERED: BUPIVACAINE (PF) 0.25% 30 ML VIAL SQ ONE ×2 (12:05→12:50)
[2021-10-02] MEDS ORDERED: LACTATED RINGERS 1,000 ML IV ONE (12:30)
--- NOTE | 2021-10-02 13:08 | P.OP ---
Date of Procedure: 10/02/21 Preoperative Diagnosis: 1. Ectopic right adnexa Postoperative Diagnosis: 1. ectopic in right fallopian tube Procedure(s) Performed: Laparoscopic right salpingectomy with removal of ectopic Anesthesia: JOHNATHON Surgeon: Lianet Moreno Estimated Blood Loss (ml): 25 IV fluids (ml): 700 Urine output (ml): 150 Pathology: other (Right fallopian tube with ectopic) Condition: stable Disposition: PACU Operative Findings: Swollen right fallopian tube with ectopic and its. Normal-appearing left fallopian tube. Some left pelvic sidewall adhesions to the bowel Description of Procedure: Patient taken the operating room where general anesthesia was obtained without difficulty. She is prepped draped in normal sterile fashion dorsal lithotomy position, legs placed in the Shlomo stirrups. Bladder was drained of all urine. Clearlake speculum place in vagina and the anterior lip the cervix grasped with single-tooth tenaculum. The uterus sounded to 8 cm. The kroner manipulator was then placed. Attention was then turned to the abdomen and gloves were changed. A 5 mm infraumbilical incision was made the scalpel 5 mm optical trocar was placed under direct visualization. A 10 mm suprapubic incision was made with scalpel 10 mm optical trocar placed under direct visualization. A third trocar, 5 mm, was placed in the right lower quadrant. Survey of the pelvis revealed some blood in the posterior cul-de-sac where the fallopian tube was leaking some blood out of the fimbriated end. The 5 mm LigaSure was used to clamp seal and ligate the mesosalpinx and amputate the right fallopian tube off the uterus. The right fallopian tube and ectopic were placed into a #10 bag and pulled through the suprapubic incision. Hemostasis was assured. Pelvis was irrigated. All instruments removed from the abdomen and pelvis. The 10 mm incision was closed in 0 Vicryl and the fascial layer and then 4-0 Vicryl subcuticular fashion. The 5 mm incisions were closed with 4-0 Vicryl subcuticular fashion. Patient to our procedure well, sponge initial counts correct 2. She was taken to recovery in stable condition.
[2021-10-02] MEDS ORDERED: HYDROmorphone 0.5 MG/0.5 ML SYRINGE IVP ONE (13:16)
[2021-10-02] MEDS ORDERED: diphenhydrAMINE 50 MG/ML 1 ML VIAL IVP ONE (13:18)
[2021-10-02] MEDS ORDERED: SIMETHICONE 80 MG CHEWABLE PO PRN (14:31)
[2021-10-02] MEDS ORDERED: ZOLPIDEM 5 MG TAB PO PRN (14:31)
[2021-10-02] MEDS ORDERED: Acetaminophen-Codeine 300-30mg TAB PO PRN ×2 (14:31)
[2021-10-02] MEDS ORDERED: METOCLOPRAMIDE 5 MG/ML 2 ML VIAL IVP PRN (14:31)
[2021-10-02] MEDS ORDERED: IBUPROFEN 600 MG TAB PO PRN (14:31)
[2021-10-02] MEDS ORDERED: KETOROLAC 15 MG/ML 1 ML VIAL IVP PRN (14:31)
[2021-10-02] MEDS ORDERED: HEPARIN SODIUM,PORCINE/PF 5,000 UNIT/0.5 ML SYRINGE SQ SCH (16:00)
--- NOTE | 2021-10-02 17:28 | P.DS ---
Providers Date of admission: 10/01/21 18:58 Expected date of discharge: 10/02/21 Attending physician: Alban Amin Primary care physician: Karis Franco - Discharge Diagnosis(es) (1) Status post laparoscopy Current Visit: Yes Status: Acute Hospital Course: Pt had ectopic in the right fallopian tube. She did have methotrexate and bhcg was dropping appropriately. HOwever, pt started to have increased pain. I took her to the operating room where I found her fallopian tube to have some bleeding. I performed a laparoscopic salpingectomy with removal of ectopic . Postoperatively patient is doing very well. Tolerating a reg diet, urinating and ambulating without a problem. Pt will be discharged home today in stable condition to follow up with me in 4 weeks. Patient Condition at Discharge: Fair Plan - Discharge Summary New Discharge Prescriptions: New Ibuprofen [Motrin] 600 mg PO Q6HR PRN #30 tab PRN Reason: Mild Pain Or Fever >= 100.5 Acetaminophen-Codeine 300-30mg [Tylenol #3] 1 - 2 tab PO Q6H PRN #20 tablet PRN Reason: Pain Discharge Medication List Acetaminophen-Codeine 300-30mg [Tylenol #3] 1 - 2 tab PO Q6H PRN #20 tablet 10/02/21 [Rx] Ibuprofen [Motrin] 600 mg PO Q6HR PRN #30 tab 10/02/21 [Rx] Follow up Appointment(s)/Referral(s): Karis Fracno, ALDAIR [Primary Care Provider] - 1-2 days (Follow up with Dr. Moreno 10-06-2021 at 1:30p.m.) Lianet Moreno DO [Doctor of Osteopathic Medicine] - 4 Weeks Discharge Disposition: HOME SELF-CARE
[2021-10-02 17:37] VITALS: TEMP 98
[2021-10-02 17:38] VITALS: BP 100/65; PULSE 72; RESP 15
[2021-10-02] MEDS ORDERED: SENNOSIDES-DOCUSATE SODIUM 1 EACH TAB PO SCH (21:00)
== END 2021-10-02 18:45 | disposition home or self-care (01) ==
LOC: EC 16:00 → 4FBP 18:58
PROVIDERS: ADMIT Obstetrics & Gynecology; ATTEND Obstetrics & Gynecology
DX: O00.101 Right tubal pregnancy without intrauterine pregnancy (principal); G43.909 Migraine, unspecified, not intractable, without status migrainosus; F32.A Depression, unspecified; F17.290 Nicotine dependence, other tobacco product, uncomplicated
CPT/HCPCS: 96376; 96361; 96374; 96375; 99285; 36415; 86900; 86901; 88305; 80053; 83690; 85025 ×2; 85610; 85730; 86850; 86870; 86880; 81001; 84702; 76801; 59120; G0378 ×2; J2250; J1200; J2710; J2405 ×2; J3010; J1170 ×3; J1885; J0330; J2704; J2001

== ENCOUNTER 2022-01-10 17:27 | Emergency (ER) | payer OTHER ==
[2022-01-10 17:31] VITALS: RESP 20
[2022-01-10 18:04] LABS: Basophils # (A) 0.1 k/uL (0-0.2); Basophils % (A) 1 %; Eosinophils # (A) 0.1 k/uL (0-0.7); Eosinophils % (A) 2 %; HCT 40.7 % (34.0-46.0); HGB 13.9 gm/dL (11.4-16.0); Lymphocytes # (A) 2.2 k/uL (1.0-4.8); Lymphocytes % (A) 23 %; MCH 30.9 pg (25.0-35.0); MCV 90.7 fL (80.0-100.0); Mean Platelet Volume 7.6; Monocytes # (A) 0.6 k/uL (0-1.0); Monocytes % (A) 6 %; Neutrophils # (A) 6.3 k/uL (1.3-7.7); Neutrophils % (A) 67 %; Platelet Count 345 k/uL (150-450); RBC 4.49 m/uL (3.80-5.40); RDW 12.2 % (11.5-15.5); WBC 9.4 k/uL (3.8-10.6)
--- NOTE | 2022-01-10 18:27 | ED ---
Female Urogenital HPI - General Chief complaint: Vaginal Bleeding Stated complaint: Vaginal bleeding,dizziness Time Seen by Provider: 01/10/22 17:32 Source: patient, RN notes reviewed Mode of arrival: ambulatory Limitations: no limitations - History of Present Illness Initial comments: Patient is a 26-year-old female presenting to the emergency room at the direction of urgent care for lower back pain, pelvic tenderness and vaginal bleeding. She reports that cycle is not due for approximately 1 more week but she started bleeding persists diffusely earlier this morning with clots and what appears to be tissue remnants. She is actively trying to conceive with her spouse. She unfortunately had an ectopic in September of this year which required emergent surgery. She denies any pelvic cramping, chest pain, shortness of breath, upper abdominal pain, nausea, vomiting, diarrhea, headache, dizziness, fevers or chills. In addition to her ectopic she has a past medical history significant for migraines and asthma. - Related Data Previous Rx's Medication Instructions Recorded Acetaminophen-Codeine 300-30mg 1 - 2 tab PO Q6H PRN #20 tablet 10/02/21 [Tylenol #3] Ibuprofen [Motrin] 600 mg PO Q6HR PRN #30 tab 10/02/21 Allergies Allergy/AdvReac Type Severity Reaction Status Date / Time No Known Allergies Allergy Verified 01/10/22 17:30 Review of Systems ROS Statement: Those systems with pertinent positive or pertinent negative responses have been documented in the HPI. ROS Other: All systems not noted in ROS Statement are negative. Past Medical History Additional Past Medical History / Comment(s): migraines, recurrent tonsillitis with cryptitis and tonsillar hypertrophy History of Any Multi-Drug Resistant Organisms: None Reported Additional Past Surgical History / Comment(s): oophrectomy after ectopic Past Anesthesia/Blood Transfusion Reactions: No Reported Reaction Past Psychological History: No Psychological Hx Reported, Depression Smoking Status: Never smoker, Vaper Past Alcohol Use History: None Reported, Daily Past Drug Use History: None Reported, Marijuana - Past Family History Father Family Medical History: No Reported History Mother Family Medical History: No Reported History Brother(s) Family Medical History: No Reported History Sister(s) Family Medical History: No Reported History General Exam Limitations: no limitations General appearance: alert, in no apparent distress Head exam: Present: atraumatic, normocephalic, normal inspection Eye exam: Present: normal appearance, PERRL, EOMI. Absent: scleral icterus, conjunctival injection, periorbital swelling ENT exam: Present: normal exam, mucous membranes moist Neck exam: Present: normal inspection, full ROM Respiratory exam: Present: normal lung sounds bilaterally. Absent: respiratory distress, wheezes, rales, rhonchi, stridor Cardiovascular Exam: Present: regular rate, normal rhythm, normal heart sounds. Absent: systolic murmur, diastolic murmur, rubs, gallop, clicks GI/Abdominal exam: Present: soft, tenderness (mild pelvic tenderness), normal bowel sounds. Absent: distended, guarding, rebound, rigid Rectal exam: Present: deferred Extremities exam: Present: normal inspection. Absent: pedal edema, joint sw elling Back exam: Present: normal inspection Neurological exam: Present: alert, oriented X3, CN II-XII intact Psychiatric exam: Present: normal affect, normal mood Skin exam: Present: warm, dry, intact, normal color. Absent: rash Course Vital Signs 01/10/22 17:28 Temperature 98.1 F Pulse Rate 71 Respiratory 20 Rate Blood Pressure 123/83 O2 Sat by Pulse 99 Oximetry Medical Decision Making - Medical Decision Making 26-year-old female presenting with concerns regarding excessive vaginal bleeding and lower back pain with 3 previous ectopic and currently attempting to conceive. Reports no recent testing. Menstrual cycle not due until next week. He denies any analgesic needs at this time. Will obtain CBC, urine and serum hCG levels along with Rh testing. Given past history will also obtain OB ultrasound to rule out ectopic . CBC stable, Rh-, serum hCG quantitative negative for . Ultrasound shows no evidence of ectopic or intrauterine . Vaginal bleeding consistent with early menstrual cycle with heavy blood flow. Findings discussed with patient. Will discharge home. Advised no contraindications to continue to at tempt to conceive for 1 menstrual cycle completed. Case discussed with Dr. Mayer. - Lab Data Result diagrams: 01/10/22 17:45 Lab Results 01/10/22 01/10/22 01/10/22 Range/Units 17:40 17:45 17:45 WBC 9.4 (3.8-10.6) k/uL RBC 4.49 (3.80-5.40) m/uL Hgb 13.9 (11.4-16.0) gm/dL Hct 40.7 (34.0-46.0) % MCV 90.7 (80.0-100.0) fL MCH 30.9 (25.0-35.0) pg MCHC 34.0 (31.0-37.0) g/dL RDW 12.2 (11.5-15.5) % Plt Count 345 (150-450) k/uL MPV 7.6 Neutrophils % 67 % Lymphocytes % 23 % Monocytes % 6 % Eosinophils % 2 % Basophils % 1 % Neutrophils # 6.3 (1.3-7.7) k/uL Lymphocytes # 2.2 (1.0-4.8) k/uL Monocytes # 0.6 (0-1.0) k/uL Eosinophils # 0.1 (0-0.7) k/uL Basophils # 0.1 (0-0.2) k/uL HCG, Quant <2.4 mIU/mL Blood Type O Negative Blood Type Recheck O Neg Bld Type Recheck Status No - Radiology Data Radiology results: report reviewed, image reviewed Transabdominal ultrasound impression the uterus is empty no evidence of intrauterine . No depth Dexon mass. There is a 1.5 cm right ovarian cysts. No evidence of any significant free fluid Disposition Clinical Impression: Menorrhagia Disposition: HOME SELF-CARE Condition: Stable Instructions (If sedation given, give patient instructions): Dysmenorrhea (ED) Additional Instructions: Please continue to monitor vaginal bleeding and follow-up with your primary care provider or MEMBER CERTIFICATION MANAGER if bleeding worsens. No contraindication for continued attempts to conceive after menstrual cycle completed. Please return to the Emergency Department if symptoms worsen or any other concerns. Is patient prescribed a controlled substance at d/c from ED?: No Referrals: Karis Franco PAC [Primary Care Provider] - 1-2 days Time of Disposition: 19:34
--- NOTE | 2022-01-10 19:02 | US ---
EXAMINATION TYPE: Transabdominal DATE OF EXAM: 01/10/2022 6:32 PM COMPARISON: US CLINICAL HISTORY: vaginal bleeding hx etopic preg. Vaginal bleeding. Hx ectopic in right fa llopian tube. Right fallopian tube removed in September of 2021. hCG not available; If patient is this will be her second . . EXAM PERFORMED: Transvaginal (TV) and Transabdominal (TA) EXAM MEASUREMENTS: GESTATIONAL AGE / DATING Physician Established: Not yet established. Dates by LMP: (4 weeks/3 days) EDC: 09/16/2022 Dates by First Scan: Dates by Current Scan for: NO IUP seen. MATERNAL ANATOMY Uterus: 6.3 x 3.7 x 2.9 cm. Anteverted. Fluid seen in cervix: 1.5 x 0.7 x 0.1 cm. Right Ovary: 3.5 x 1.9 x 1.9 cm. Area of mixed echogenicity seen: 1.5 x 1.6 x 1.5 cm. Left Ovary: 3.6 x 1.7 x 1.6 cm. Seen TA only. Post CDS / Adnexa: Free fluid visualized. Presence of free fluid: Yes in cul de sac and in the right adnexa adjacent to the right ovary. Presence of corpus luteal cyst: Area of mixed echogenicity seen in the right ovary as mentioned above , ?etiology. GESTATION / SURVEY IUP: No IUP seen at this time Date of LMP: 12/10/2021 Beta HcG (if available): Not available at time of exam. Treat as OB scan, no concern for torsion per Paula. Exam slightly limited due to bowel. IMPRESSION: The uterus is empty. No adnexal mass. There is a 1.5 cm right ovarian cyst. No evidence of any signif icant free fluid.
[2022-01-10 19:48] VITALS: BP 120/78; PULSE 70; TEMP 98
== END 2022-01-10 19:48 | disposition home or self-care (01) ==
LOC: EC 17:27
DX: N92.0 Excessive and frequent menstruation with regular cycle (principal); F17.290 Nicotine dependence, other tobacco product, uncomplicated; F12.90 Cannabis use, unspecified, uncomplicated; F32.A Depression, unspecified; Z79.899 Other long term (current) drug therapy
CPT/HCPCS: 36415; 76801; 76817; 84702; 85025; 86900; 86901; 99284